=== PATIENT | male | born 2000 | race Caucasian/White ===

== ENCOUNTER 2023-11-12 23:49 | Emergency (ER) | payer OTHER, SELFPAY ==
[2023-11-12 23:52] VITALS: BP 173/83; PULSE 70; TEMP 36.3; O2SAT 98; BMI 36.6
--- NOTE | 2023-11-13 00:22 | ED_ITS ---
HPI - Wound/Laceration General Chief Complaint: Wound/Laceration Stated Complaint: MOUTH INJURY Time Seen by Provider: 11/12/23 23:58 Source: patient Mode of arrival: walk-in Limitations: no limitations History of Present Illness HPI narrative: 23-year-old male presents for a painful wound on the inside of his right upper lip. This was sustained about 3 days ago when he did it when he was having a seizure. He was evaluated at another hospital that day and discharged. He thought he was told to put Vaseline on it but he is not sure. He came here for help. No bleeding or purulent drainage. The pain is mild to moderate. Related Data Home Medications ?Medication ?Instructions ?Recorded ?Confirmed levetiracetam 500 mg tablet 500 mg PO Q12H 11/12/23 11/12/23 Allergies Allergy/AdvReac Type Severity Reaction Status Date / Time No Known Drug Allergies Allergy Verified 11/12/23 23:56 Review of Systems ROS Narrative A ten point review of systems is negative except as noted above. Exam Narrative Exam Narrative: Nurses note and vital signs reviewed and patient is not hypoxic. General: The patient appears well and in no apparent distress. Patient is resting comfortably on cart. Skin: Warm, dry, no pallor noted. There is no rash noted. Head: Normocephalic, atraumatic Eye: Normal conjunctiva, no drainage Ears, Nose, Mouth, and Throat: oral mucosa is moist. Nares patent. The mucosal surface of the right upper lip has a healing laceration. No purulent drainage. Teeth appear to be intact. No bleeding or open area. Cardiovascular: Regular Rate and Rhythm Respiratory: Patient is in no distress, no accessory muscle use, lungs are clear to auscultation, no wheezing, rales or rhonchi Back: non-tender GI: Soft and nontender Musculoskeletal: The patient has no evidence of calf tenderness, no pitting edema, symmetrical pulses noted bilaterally Neurological: A&O, normal speech Psychiatric: Cooperative Constitutional Vital Signs, click to edit/add: Last Vital Signs Temp 97.4 F L 11/12/23 23:52 Pulse 70 11/12/23 23:52 Resp 18 11/12/23 23:52 BP 173/83 H 11/12/23 23:52 Pulse Ox 98 11/12/23 23:52 O2 Del Method Room Air 11/12/23 23:52 Course Vital Signs Vital signs: Vital Signs Temperature 97.4 F L 11/12/23 23:52 Pulse Rate 70 11/12/23 23:52 Respiratory Rate 18 11/12/23 23:52 Blood Pressure 173/83 H 11/12/23 23:52 Pulse Oximetry 98 11/12/23 23:52 Oxygen Delivery Method Room Air 11/12/23 23:52 Temperature 97.4 F L 11/12/23 23:52 Pulse Rate 70 11/12/23 23:52 Respiratory Rate 18 11/12/23 23:52 Blood Pressure 173/83 H 11/12/23 23:52 Pulse Oximetry 98 11/12/23 23:52 Oxygen Delivery Method Room Air 11/12/23 23:52 MDM - Wound/Laceration MDM Narrative Medical decision making narrative: There is no evidence of infection. He was dispensed viscous lidocaine. Treatment diagnosis and follow-up were discussed with the patient. Differential Diagnosis Differential diagnosis: Likely laceration and avulsion of skin Discharge Plan Discharge Stand Alone Forms: Portal Instructions Chief Complaint: Wound/Laceration Clinical Impression: Laceration Patient Disposition: Home, Self-Care Time of Disposition Decision: 00:21 Condition: Good Mode of Transportation: Private Vehicle Prescriptions / Home Meds: No Action levetiracetam 500 mg tablet 500 mg PO Q12H Print Language: [place] Island[place] Instructions: Laceration Without Closure (ED) Referrals: [facility] [Primary Care Provider] - 1 week
[2023-11-13] MEDS: LIDOCAINE VISCOUS 2% 15 ML SOLUTION 2 ML TOPICAL (00:37)
== END 2023-11-13 00:44 | disposition home or self-care (01) ==
PROVIDERS: Emergency Provider Emergency Medicine
DX: S01.511A Laceration without foreign body of lip, initial encounter (principal); X58.XXXA Exposure to other specified factors, initial encounter; Z79.899 Other long term (current) drug therapy
CPT/HCPCS: 99282